=== PATIENT | female | born 1995 | race African-American/Black ===

== ENCOUNTER 2018-01-02 09:56 | Emergency (ER) | payer BC | END 2018-01-02 10:43 | disposition home or self-care (01) | LOC: ERS 09:56 | DX: J06.9 Acute upper respiratory infection, unspecified (principal); F41.9 Anxiety disorder, unspecified | CPT/HCPCS: 99283 ==

== ENCOUNTER 2018-03-28 01:59 | Emergency (ER) | payer BC | END 2018-03-28 02:57 | disposition left against medical advice (07) | LOC: ERS 01:59 | DX: Z53.21 Procedure and treatment not carried out due to patient leaving prior to being seen by health care provider (principal) ==

== ENCOUNTER 2018-03-29 15:39 | Emergency (ER) | payer BC | END 2018-03-29 16:54 | disposition home or self-care (01) | LOC: ERS 15:39 | DX: S01.511A Laceration without foreign body of lip, initial encounter (principal); F41.9 Anxiety disorder, unspecified; W19.XXXA Unspecified fall, initial encounter | CPT/HCPCS: 99283 ==

== ENCOUNTER 2018-06-02 13:23 | Emergency (ER) | payer BC ==
[2018-06-02 16:37] LABS: Bilirubin Negative (Negative); Blood, Urine Negative (Negative); Clarity CLOUDY (Clear); Glucose, Urine (Dipstick) Negative (Negative); Leukocyte Small (Negative); Nitrite Positive (Negative); Protein, Urine (Dipstick) Negative (Neg-Trace); Specific Gravity, Urine 1.024 (1.002-1.036)
[2018-06-02 16:38] LABS: Bacteria/HPF 4+ HPF (None Seen); Hyaline Casts/LPF 4-6 HYALINE CAST LPF (0-3 Hyaline); Pathc Cast-AUWi Flag 1.16 (0-2.49); RBC/HPF 0-3 HPF (0-3); Squamous Epithelial 0-3 HPF (0-3); WBC/HPF 21-50 HPF (0-3)
[2018-06-02 16:40] LABS: Pregnancy Test - Urine (BHCG) Negative (Negative); Pregu Control Background? CLEAR/WHITE (CLR/WHITE); Pregu Control Bar Appear? YES (CONTROL BAR); Specific Gravity 1.024 (1.002-1.036)
== END 2018-06-02 16:50 | disposition home or self-care (01) ==
LOC: ERS 13:23
DX: N30.00 Acute cystitis without hematuria (principal); J02.9 Acute pharyngitis, unspecified; F41.9 Anxiety disorder, unspecified
CPT/HCPCS: 81003; 81015; 81025; 87077; 87081; 87086; 87186; 87430; 87804; 99284

== ENCOUNTER 2018-08-08 17:15 | Observation (INO) | payer BC ==
[2018-08-08 17:46] LABS: Hemoglobin 13.3 g/dL (12.0-16.0); Mean Corpuscular HGB CONC 32.5 g/dL (32.0-36.0); Mean Corpuscular Volume 92.1 fL (78.0-98.0); Mean Platelet Volume 7.8 fL (7.4-10.4); Platelet Count 219 thou/uL (130-400); RBC Distribution Width 12.4 % (11.5-14.5); Red Blood Cell (RBC) Count 4.44 mill/uL (4.20-5.40); White Blood Cell (WBC) Count 8.1 thou/uL (4.8-10.8)
[2018-08-08 18:02] LABS: Band 2 % (5-11); Eosinophils 2 % (0-10); Lymphocytes 26 % (21-51); MDiff Complete? YES; Monocytes 1 % (0-10); Neutrophil 69 % (42-75); Platelet Morphology Comment Appears Adequate
[2018-08-08 18:05] LABS: ALT (SGPT) 11 U/L (8-55); AST (SGOT) 21 U/L (5-34); Albumin 3.9 g/dL (3.5-5.0); Alkaline Phosphatase 61 U/L (40-150); Anion Gap 12 mmol/L (10-20); BUN (Urea Nitrogen) 9 mg/dL (7.0-18.7); Bilirubin, Total 0.6 mg/dL (0.2-1.2); Calc. Creatinine Clearance 0 mL/min (70-130); Calcium 9.6 mg/dL (7.8-10.44); Carbon Dioxide 22 mmol/L (22-29); Chloride 105 mmol/L (98-107); Estimated GFR-MDRD Greater than 90; Globulin 3.7 g/dL (2.4-3.5); Glucose 97 mg/dL (70-105); Potassium 3.7 mmol/L (3.5-5.1); Protein, Total 7.6 g/dL (6.0-8.3); Sodium 135 mmol/L (136-145)
[2018-08-08 18:19] LABS: Bilirubin Negative (Negative); Blood, Urine Negative (Negative); Clarity CLOUDY (Clear); Glucose, Urine (Dipstick) Negative (Negative); Leukocyte Small (Negative); Nitrite Positive (Negative); Protein, Urine (Dipstick) Negative (Neg-Trace); Specific Gravity, Urine 1.027 (1.002-1.036); pH, Urine 6.5 (5.0-9.0)
[2018-08-08 18:20] LABS: Bacteria/HPF 4+ HPF (None Seen); Hyaline Casts/LPF 7-10 HYALINE CAST LPF (0-3 Hyaline); Pregnancy Test - Urine (BHCG) POSITIVE (Negative); Pregu Control Background? CLEAR/WHITE (CLR/WHITE); Pregu Control Bar Appear? YES (CONTROL BAR); Specific Gravity 1.003 (1.002-1.036)
[2018-08-08] MEDS ORDERED: Lactated Ringer's 1,000 ML IV SCH (19:45)
[2018-08-08] MEDS ORDERED: cefTRIAXone\\ROCEPHIN 2 GM in Sodium Chloride 0.9% 100 ML IVPB SCH (19:45)
--- NOTE | 2018-08-08 19:46 | PDOC.EVN ---
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 [place] [id number]. I will admit overnight, keep NPO after midnight. She is on the OR board for tomorrow around noon.
--- NOTE | 2018-08-08 20:15 | HP ---
TIME OF EVALUATION: 1915 hours until 1935 hours. LOCATION: ER. REASON FOR EVALUATION: Suspected ectopic . HISTORY OF PRESENT ILLNESS: In brief, this is a patient of Dr. Kerry Caba , who presents with lower pelvic discomfort. She denies vaginal bleeding. She is unsure of her last menstrual period, but thinks it is "at the end of May, start of June." The patient is a 23-year-old , G2, P1, with a last vaginal delivery at 2016. She denies recent trauma, vaginal bleeding, or syncope. REVIEW OF SYSTEMS: Complete review of systems was checked and is otherwise negative unless specified in the HPI. ALLERGIES: NONE. PAST MEDICAL HISTORY: None. SURGICAL HISTORY: None. OB HISTORY: She has had a vaginal delivery in 2016. PHYSICAL EXAMINATION: VITAL SIGNS: Pulse is in the 80s. Blood pressure is 123/78. No acute distress, resting in bed Abdomen: soft and nontender, nondistended LABORATORY DATA: Hematocrit value is 40. Urinalysis shows positive nitrites with 4+ urine bacteria, but also 11-20 squamous epithelial cells. Beta HCG is 14, 712. On OB ultrasound, there is no evidence of intrauterine . There is no evidence of hemoperitoneum. There is a suspected left tubal mass with what is suspected to be a gestational sac and possible yolk sac. Gestational sac is about 1.5-1.7 cm. ASSESSMENT: This is a 23-year-old 2, para 1 with unsure last menstrual period with suspected left-sided ectopic with a beta- hCG of 14,700 with no evidence of intrauterine . She is hemodynamically stable at this time. PLAN: 1. I have discussed with the patient the findings of the ultrasound and the significance of the beta HCG level. I have also called the OR and discussed with Chin, who is in charge of the OR tonight. As the patient is hemodynamically stable, we would elect to keep the patient overnight and perform diagnostic laparoscopy tomorrow in a controlled setting as this is not currently emergent. 2. I have ordered a type and Rh and as well as a type and cross for 2 units. 3. I will keep the patient n.p.o. after midnight. 4. Although the UA is possible contamination, I have ordered Rocephin 2 g IV to be given x1 tonight in case there is a UTI. 5. I have discussed the case with Dr. Caba and she is aware. I will proceed to the operating room tonight if the patient's clinical status worsens/ deteriorate. 6. I have consented the patient for diagnostic and operative laparoscopy, tubal removal, and possible laparotomy. Questions answered. Job ID: [id number] MTDD
--- NOTE | 2018-08-08 20:34 | ULT ---
TRANSABDOMINAL AND TRANSVAGINAL PELVIC ULTRASOUND WITH GRAYSCALE, COLOR FLOW, AND SPECTRAL DOPPLER IM AGING: History: Pelvic pain, abdominal pain. HCG 14,712. FINDINGS: The uterus measures 8.4 x 5.1 x 4.5 cm and the right ovary measures 1.9 x 2.7 x 1.4 cm. The left ovar y measures 1.6 x 3.4 x 1.9 cm. Flow is demonstrated to both ovaries. There is a cystic mass in the le ft adnexa separate from the ovary measuring 1.7 x 1.8 x 1.2 cm. There is suggestion of a yolk sac wit hin this cystic mass. No heart tones identified. No gestational sac is seen. No free fluid is i dentified. IMPRESSION: The possibility of left adnexal/tubal ectopic cannot be excluded. Findings discussed over the telephone with Dr. Mckeon at 6:45 p.m. POS: [facility]
[2018-08-08] MEDS ORDERED: Fentanyl 100 MCG/2 ML VIAL ONE (20:42)
[2018-08-08] MEDS: Ibuprofen 600 MG TAB PO PRN (23:39)
[2018-08-09] MEDS: Ibuprofen 600 MG TAB PO PRN ×2 (06:07→17:35)
[2018-08-09] MEDS ORDERED: CEFAZOLIN 1 GM VIAL SLOW IVP SCH (08:00)
[2018-08-09] MEDS ORDERED: CEFAZOLIN 2 GM in Premix Bag 1 BAG IVPB SCH (08:15)
--- NOTE | 2018-08-09 08:26 | PDOC.EVN ---
Event Note - Event Note Event Note: HD #2 S: Pt having lower abdominal cramping, no severe pain. No N/V. O: VSSAF NAD unlabored respirations soft/nd/nd/no guarding/rebound A: 23yo with left sided ectopic P: diagnostic laparoscopy possible salpingectomy vs salpingostomy. Discussed risks/benefits of procedure, pt understands and wishes to proceed. All questions answered.
[2018-08-09] MEDS: Lactated Ringer's 1,000 ML IV SCH ×2 (09:17→21:24)
[2018-08-09] MEDS: Nitrofurantoin Monohyd/M-Cryst 100 MG CAP PO SCH ×2 (10:41→21:38)
[2018-08-09] MEDS ORDERED: Bupivacaine HCl 0.5%/Epinephrine 1:200,000/PF 30 ml Vial ONE (11:50)
[2018-08-09] MEDS ORDERED: Fentanyl 100 MCG/2 ML VIAL ONE ×2 (11:58→13:37)
[2018-08-09] MEDS ORDERED: Midazolam HCl 2 mg/2 ml Vial ONE (11:58)
[2018-08-09] MEDS ORDERED: Fentanyl 100 MCG/2 ML VIAL SLOW IVP PRN (13:35)
[2018-08-09] MEDS ORDERED: Ketorolac Tromethamine 30 MG/ML VIAL IVP PRN (13:36)
[2018-08-09] MEDS ORDERED: Ondansetron PF 4 MG/2 ML Vial IVP PRN (13:36)
[2018-08-09] MEDS ORDERED: Promethazine HCl 25 MG/ML VIAL SLOW IVP PRN (14:15)
[2018-08-09] MEDS ORDERED: Promethazine HCl 25 MG/ML VIAL IM PRN (14:15)
[2018-08-09] MEDS ORDERED: Ondansetron HCl/PF 4 MG/2 ML Vial IVP PRN (14:15)
[2018-08-09] MEDS: HYDROcodone/Acetaminophen 5/325 mg Tablet PO PRN ×3 (15:01→21:37)
[2018-08-09] MEDS ORDERED: Ketorolac Tromethamine 30 MG/ML VIAL ONE (17:08)
[2018-08-09] MEDS ORDERED: Dexamethasone 20 MG/5 ML VIAL ONE (17:08)
[2018-08-09] MEDS ORDERED: Ondansetron PF 4 MG/2 ML Vial ONE (17:08)
[2018-08-09] MEDS ORDERED: PROPOFOL 200 MG/20 ML VIAL ONE (17:08)
[2018-08-09] MEDS ORDERED: Rocuronium Bromide 10 MG/ML (10ML VIAL) ONE (17:08)
--- NOTE | 2018-08-09 19:54 | OP ---
DATE OF PROCEDURE: 08/09/2018 PREOPERATIVE DIAGNOSIS: Left-sided ectopic . POSTOPERATIVE DIAGNOSIS: Left-sided ectopic . PROCEDURES PERFORMED: Diagnostic laparoscopy and left salpingostomy. ANESTHESIA: General endotracheal. GEOSPATIAL APPLICATIONS DEVELOPER SURGEON: Parris Pierce PA-C ESTIMATED BLOOD LOSS: 10 mL. IVF: 1 L crystalloid. URINE OUTPUT: 300 mL clear urine. COMPLICATIONS: None. DRAINS: None. PATHOLOGY: Left ectopic . FINDINGS: Left-sided ectopic measuring approximately 2 cm long. There was no tubal rupture present. The gestational sac was able to be shelled out in total and the fallopian tube was hemostatic following aggressive irrigation of the implantation site. The contralateral fallopian tube was normal. Bilateral ovaries were normal. There was a corpus luteum cyst on the left side. The uterus was normal appearing. The upper abdomen was also normal. DESCRIPTION OF PROCEDURE: The patient was taken to the operating room, where general anesthesia was obtained without difficulty. The patient was prepped and draped in a sterile fashion in a dorsal lithotomy position. Means catheter was placed in the bladder and the speculum was placed in the vagina. The single-tooth Hulka was inserted into the cervix as a means to manipulate. The speculum was removed. Legs were placed in low lithotomy. Attention was turned to the abdomen. 0.5% Marcaine with epinephrine was infiltrated into the umbilicus. A 5 mm skin incision was made and a Veress needle was passed to the abdomen, noting an opening pressure of 3 mmHg. Pneumoperitoneum was obtained. The Veress needle was removed. A 5 mm trocar and camera were advanced optically into the abdomen and steep Trendelenburg was obtained. Right and left 5 mm lower quadrant ports were placed under direct visualization after infiltrating with anesthetic. At that time, the above findings were noted and further documentation was performed. A 5 mm suprapubic port was also placed under direct visualization after infiltrating with anesthetic. The fallopian tube was then stabilized and injected with a dilute solution of vasopressin, was 20 units and 100 mL of saline, 6 mL of this was infiltrated into the ectopic . The monopolar scissors were then used to incise the antimesenteric border of the fallopian tube over the ectopic and once the tube was opened up, the suction blower mechanic was placed into the fallopian tube and hydrodissection was performed. Gentle traction was then placed on the sac during hydrodissection and the sac peeled away very easily. Additional suction irrigation of the tube was performed and the tube was thoroughly examined and no further products were noted. It was thoroughly irrigated as well. At that time, a bag was passed into the abdomen and the specimen was placed into the bag. The bag was removed with the specimen in and out of the abdomen and low pressure check was performed and hemostasis was noted to be excellent after cautery with the monopolar. All instruments were removed from the abdomen. Pneumoperitoneum was released. The fascia of the 11 mm port was closed with 0 Vicryl in a [id number]. The skin was closed with 4-0 Monocryl in a subcuticular fashion. Dermabond was applied. The single-tooth Hulka was removed out of the vagina. The cervix was noted to be hemostatic. All instruments removed out of the vagina. The Means was discontinued prior to leaving the operating room. The patient tolerated the procedure well. Sponge, lap, and needle counts were correct x2. The patient was taken to recovery in stable condition. The patient received Ancef 2 g prior to the procedure. Job ID: [id number]
[2018-08-10] MEDS: Lactated Ringer's 1,000 ML IV SCH (02:08)
[2018-08-10] MEDS: HYDROcodone/Acetaminophen 5/325 mg Tablet PO PRN ×2 (04:36→09:31)
[2018-08-10 08:08] VITALS: BP 99/51; TEMP 98
[2018-08-10] MEDS: Nitrofurantoin Monohyd/M-Cryst 100 MG CAP PO SCH (09:32)
--- NOTE | 2018-08-11 11:46 | DIS ---
DATE OF ADMISSION: 08/08/2018 DATE OF DISCHARGE: 08/10/2018 ADMISSION DIAGNOSES: 1. Ectopic , hemodynamically stable. 2. Pelvic pain. DISCHARGE DIAGNOSIS: Status post left salpingostomy and diagnostic laparoscopy. ADDITIONAL ATTENDING PHYSICIAN: Kerry Caba MD CONSULTATIONS: None. PROCEDURES: Laparoscopic left salpingostomy. HISTORY AND PHYSICAL: Please see previously dictated H and P. HOSPITAL COURSE: A 23-year-old G2, P1, presented at estimated 6 weeks gestation with pelvic pain and cramping. She was found to have HCG level of 14,000. Her ultrasound showed an empty uterus, ovaries that are normal, and a cystic mass in the left adnexa measuring 1.7 cm with a yolk sac. No pole or heart tones were identified. The patient was stable. There was no free fluid on the ultrasound and she was dispositioned for surgery in a.m. after adequate n.p.o. status. She was taken to the operating room, where she had an uncomplicated surgery. Postoperatively, she went back to the floor and pain control was slightly an issue with the patient and therefore, she stayed an additional night in the hospital. She was feeling well on postoperative day #1. She voided and ambulated. Pain was controlled on p.o. pain medications. She tolerated a regular diet. She will follow up with me in 2 weeks postoperative time. Her final pathology was pending at the time of discharge. Job ID: [id number]
== END 2018-08-10 10:20 | disposition home or self-care (01) ==
LOC: ERS 17:15 → INTOOBSV 19:40 → 3SE 19:40
PROVIDERS: ADMIT Obstetrics & Gynecology; ATTEND Obstetrics & Gynecology
PROC: 10T24ZZ Resection of Products of Conception, Ectopic, Percutaneous Endoscopic Approach (ICD-10-PCS; principal; 2018-08-09)
DX: O00.102 Left tubal pregnancy without intrauterine pregnancy (principal); F41.9 Anxiety disorder, unspecified
CPT/HCPCS: 36415; 36416; 76856; 80053; 81003; 81015; 81025; 84702; 85025; 86850; 86900; 86901; 88305; 96360; 96361; 96365; 96375; G0378; J0670; J0690; J0696; J1100; J1885; J2250; J2405; J2704; J3010; J3490

== ENCOUNTER 2019-01-24 09:21 | Emergency (ER) | payer BC ==
--- NOTE | 2019-01-24 14:42 | RAD ---
PORTABLE CHEST 1 VIEW: Date: 01/24/19 Time: 1046 hours HISTORY: Cough, congestion, and chest pain. FINDINGS: The heart size is normal. The lungs are expanded and clear. The bony thorax is unremarkable. IMPRESSION: Normal exam. POS: [facility]
== END 2019-01-24 11:32 | disposition home or self-care (01) ==
LOC: ERS 09:21
DX: J06.9 Acute upper respiratory infection, unspecified (principal); M94.0 Chondrocostal junction syndrome [Tietze]
CPT/HCPCS: 71045; 93005

== ENCOUNTER 2024-12-20 08:48 | Emergency (ER) | payer BC, SELFPAY ==
[2024-12-20] MEDS ORDERED: Ibuprofen 800 MG TAB ONE (10:10)
== END 2024-12-20 10:38 | disposition home or self-care (01) ==
LOC: ERS 08:48
DX: J06.9 Acute upper respiratory infection, unspecified (principal)
CPT/HCPCS: 87428; 99283

== ENCOUNTER 2025-01-30 08:19 | Emergency (ER) | payer SELFPAY | END 2025-01-30 09:38 | disposition home or self-care (01) | LOC: ERS 08:19 | DX: R05.9 Cough, unspecified (principal); R09.81 Nasal congestion; F17.290 Nicotine dependence, other tobacco product, uncomplicated | CPT/HCPCS: 87428; 99283 ==